=== PATIENT | male | born 1995 | race Caucasian/White ===

== ENCOUNTER 2019-04-26 09:15 | Emergency (ER) | payer SELFPAY ==
[~2019-04-26] VITALS: Ht 193 cm; Wt 127.3 kg
[2019-04-26 09:23] VITALS: Ht 193 cm; Wt 127.3 kg
[2019-04-26 09:52] LABS: APPEARANCE CLEAR (CLEAR); BILIRUBIN NEGATIVE (NEGATIVE); COLOR YELLOW (YELLOW); GLUCOSE NEGATIVE (NEGATIVE); KETONE NEGATIVE (NEGATIVE); NITRITE NEGATIVE (NEGATIVE); PROTEIN NEGATIVE (NEGATIVE); SPECIFIC GRAVITY 1.015 (1.005-1.020); UROBILINOGEN NORMAL (NORMAL)
[2019-04-26 10:07] LABS: BASOPHILS 0.2 % (0-2); EOSINOPHILS 1.2 % (0-7); HEMATOCRIT 41.7 % (42.0-54.0); HEMOGLOBIN 13.9 g/dL (13.5-17.5); IMMATURE GRANULOCYTES 0.2 % (0-5); LYMPHOCYTES 21.1 % (15-50); MCH 29.2 pg (26.0-34.0); MCHC 33.3 g/dL (31.0-37.0); MCV 87.6 fL (80.0-100.0); MEAN PLATELET VOLUME 11.2 fL (7.4-10.4); MONOCYTES 6.4 % (2-11); NEUTROPHILS 70.9 % (40-80); PLATELET COUNT 225 10x3/uL (130-400); RBC 4.76 10x6/uL (4.20-6.10); RDW 13.5 % (11.5-14.5); WBC 9.3 10x3/uL (4.8-10.8)
[2019-04-26 10:15] LABS: ALBUMIN 3.8 g/dL (3.4-5.0); ALKALINE PHOSPHATASE 84 U/L (46-116); ALT (SGPT) 30 U/L (10-68); AMYLASE - SERUM 43 U/L (25-115); BILIRUBIN - TOTAL 0.41 mg/dL (0.2-1.3); CALC OSMOLALITY 283 mosm/kg (275-300); CALCIUM 8.7 mg/dL (8.5-10.1); CARBON DIOXIDE 27.1 mmol/L (21.0-32.0); CHLORIDE - SERUM 105 mmol/L (98-107); CREATININE - SERUM 1.1 mg/dL (0.6-1.3); GLUCOSE 108 mg/dL (74-106); LIPASE 291 U/L (73-393); POTASSIUM - SERUM 4.3 mmol/L (3.5-5.1); PROTEIN - SERUM 7.3 g/dL (6.4-8.2); SODIUM 141 mmol/L (136-145); UREA NITROGEN 17 mg/dL (7-18); eGFR NON AFRICAN AMERICAN 87 mL/min (90-120)
[2019-04-26 10:16] LABS: TROPONIN-I < 0.017 ng/mL (0.000-0.060)
[2019-04-26] MEDS ORDERED: FLAGYL500 MG PO (13:03)
[2019-04-26] MEDS ORDERED: ZOFRAN8 MG PO (13:03)
[2019-04-26] MEDS ORDERED: LEVOFLOXACIN500 MG PO (13:03)
[2019-04-26 13:19] VITALS: BP 118/64
== END 2019-04-26 13:22 | disposition home or self-care (01) ==
LOC: D.ER 09:15
PROVIDERS: Family Medicine
DX: K52.9 Noninfective gastroenteritis and colitis, unspecified (principal)

== ENCOUNTER 2019-10-13 12:12 | Emergency (ER) | payer MEDICAID ==
[~2019-10-13] VITALS: Ht 193 cm; Wt 86.4 kg
[~2019-10-13 12:12] MED LIST: FLAGYL500 MG PO; LEVOFLOXACIN500 MG PO; ZOFRAN8 MG PO
[2019-10-13 12:19] VITALS: Ht 193 cm; Wt 86.4 kg
[2019-10-13] MEDS ORDERED: HYDROCODON-ACE1 EAC2 PO (13:01)
[2019-10-13 14:01] VITALS: BP 127/68
== END 2019-10-13 14:13 | disposition home or self-care (01) ==
LOC: D.ER 12:12
DX: R07.89 Other chest pain (principal); I10 Essential (primary) hypertension; Z72.0 Tobacco use

== ENCOUNTER 2019-11-16 12:53 | Emergency (ER) | payer MEDICAID ==
[~2019-11-16] VITALS: Ht 193 cm; Wt 127.3 kg
[~2019-11-16 12:53] MED LIST changes: +HYDROCODON-ACE1 EAC2 PO
[2019-11-16 13:03] VITALS: Ht 193 cm; Wt 127.3 kg
[2019-11-16 14:06] VITALS: BP 132/78
== END 2019-11-16 14:06 | disposition home or self-care (01) ==
LOC: D.ER 12:53
DX: J02.9 Acute pharyngitis, unspecified (principal); I10 Essential (primary) hypertension; R05 Cough; Z72.0 Tobacco use